=== PATIENT | female | born 1980 | race Caucasian/White ===

== ENCOUNTER 2017-01-20 05:35 | Day surgery (SDC) | payer MEDICAID ==
[~2017-01-20 05:35] MED LIST: CEFAZOLIN 2 GM/D5W RTU 2 GM/50 ML RTUPB IV PRN
[2017-01-20 06:11] LABS: HEMATOCRIT 41.4 % (36.0-47.0); HGB HCT DIFFERENCE 0.6; MEAN CORPUSCULAR HEMOGLOBIN 33.9 pg (27.0-33.4); MEAN CORPUSCULAR HGB CONC 33.8 g/dL (32.0-36.0); MEAN CORPUSCULAR VOLUME 100 fl (80-97); RED BLOOD COUNT 4.13 10^6/uL (3.72-5.28); RED CELL DISTRIBUTION WIDTH 13.8 % (11.5-14.0); WHITE BLOOD COUNT 4.4 10^3/uL (4.0-10.5)
[2017-01-20 06:24] LABS: ANION GAP 14 (5-19); BLOOD UREA NITROGEN 7 mg/dL (7-20); CALCIUM 9.6 mg/dL (8.4-10.2); CARBON DIOXIDE 20 mmol/L (22-30); CHLORIDE 101 mmol/L (98-107); CREATININE RESULT 0.75 mg/dL (0.52-1.25); GLUCOSE 89 mg/dL (75-110); POTASSIUM 4.2 mmol/L (3.6-5.0); SODIUM 135.4 mmol/L (137-145)
[2017-01-20 06:28] LABS: APPEARANCE,URINE CLEAR; BILIRUBIN,URINE NEGATIVE (NEGATIVE); GLUCOSE, URINE NEGATIVE (NEGATIVE); KETONES,URINE NEGATIVE (NEGATIVE); LEUKOCYTE ESTERASE,URINE NEGATIVE (NEGATIVE); NITRITE,URINE NEGATIVE (NEGATIVE); PROTEIN,URINE NEGATIVE (NEGATIVE); URINE SPECIFIC GRAVITY 1.004; UROBILINOGEN,URINE NEGATIVE mg/dL (<2.0)
[2017-01-20] MEDS ORDERED: PROPOFOL INJ 200 MG/20 ML VIAL IV ONE ×2 (06:36→08:21)
[2017-01-20] MEDS ORDERED: FENTANYL CITRATE INJ/PF 250 MCG/5 ML AMPULE ONE (06:36)
[2017-01-20] MEDS ORDERED: MIDAZOLAM 2 MG/2 ML INJ ONE (06:36)
[2017-01-20] MEDS ORDERED: BUPIVACAINE HCL 0.5 % INJ/PF 30 ML SDV ONE (07:45)
[2017-01-20] MEDS ORDERED: LIDOCAINE 1% INJ-PF (10 MG/ML) 30 ML SDV ONE (07:59)
[2017-01-20] MEDS ORDERED: OXYCODONE-ACETAMINOPHEN 5-325 MG TABLET PO PRN ×3 (08:40→09:40)
[2017-01-20] MEDS ORDERED: MEPERIDINE HCL/PF INJ 25 MG/1 ML DISP.SYRIN IV PRN (08:40)
[2017-01-20] MEDS ORDERED: MORPHINE SULFATE 10 MG/ML INJ IV PRN ×2 (08:40→09:40)
[2017-01-20] MEDS ORDERED: FENTANYL CITRATE INJ/PF 100 MCG/2 ML AMPUL IV PRN ×3 (08:40)
[2017-01-20] MEDS ORDERED: PROMETHAZINE HCL INJ 25 MG/1 ML VIAL IV PRN ×2 (08:40)
[2017-01-20] MEDS ORDERED: DIPHENHYDRAMINE HCL 50 MG/ML VIAL IV PRN (08:40)
[2017-01-20] MEDS ORDERED: ONDANSETRON HCL INJ/PF 4 MG/2 ML SDV IV PRN ×2 (08:40→09:40)
[2017-01-20] MEDS ORDERED: DEXMEDETOMIDINE INJ 80 MCG/20 ML VIAL IV ONE (09:38)
--- NOTE | 2017-01-20 09:43 | PDOC DISCHARGE SUMMARY ---
Discharge Summary (SDC) - Discharge Final Diagnosis: Flexor Adhesions Left Small Finger Date of Surgery: 01/20/17 Discharge Date: 01/20/17 Condition: Good Treatment or Instructions: Schedule Follow Up w/ Dr. Rojas Samson @ [facility] for Surgery to be seen in 10-14 days or as scheduled [place]: [place]: [place]: May remove dressing on postop day #3, keep incision covered and dry. Ice and elevate May begin aggressive finger range of motion attempting to make full fist. Stool softener of choice when on pain medication. Prescriptions: Oxycodone HCl/Acetaminophen [Percocet 5-325 mg Tablet] 1 - 2 tab PO ASDIR PRN # 45 tablet PRN Reason: Discharge Diet: As Tolerated Respiratory Treatments at Home: Deep Breathing/Coughing Discharge Activity: No Lifting Over 10 Pounds, No Lifting/Push/Pulling Activities Provided by Home Health Agency: Occupational Therapy - Begin w/in 48hr s/p surgery Report the Following to Your Physician Immediately: Fever over 101 Degrees, Unusual Bleeding, Redness, Swelling, Warmth, Numbness, Tingling Sensation
--- NOTE | 2017-01-20 09:53 | Operative Report ---
Operative Report DATE OF SURGERY: 01/20/17 PREOPERATIVE DIAGNOSIS: Flexor Adhesions Left Small Finger S/P Zone II Repair, PIP Flexor Contracture POSTOPERATIVE DIAGNOSIS: Same OPERATION: Flexor Tenolysis Left Small Finger. PIP Capsulotomy SURGEON: JAKE MCCORMACK ANESTHESIA: LMAC COMPLICATIONS: None ESTIMATED BLOOD LOSS: Minimal PROCEDURE: Indication for above procedure: 36-year-old female who sustained a zone II flexor tendon laceration in September. Unfortunately patient did not follow up with therapy adequately enough and fail to do home exercise program and subsequently developed a flexion contracture of her PIP joint and adhesions. At that point we discussed treatment options including observation versus operative intervention. Patient understood the risks of the surgical procedure including flexor tendon rupture, neurovascular injury, infection, fail to see significant improvement patient verbalized understanding consented for the procedure. Procedure In Detail: Patient was seen and evaluated in the preoperative holding area. The upper extremity was initialized and marked. Patient received 2g of Ancef IV for bacterial prophylaxis. Patient was taken back to the operative room where transferred to the operative table and placed under general anesthesia. Once they were adequately anesthetized a nonsterile tourniquet was placed on the upper extremity. A surgical team debriefing was performed ensuring all instrumentation was available, the surgical procedure was discussed with possible concerns reviewed. A digital block was performed utilizing 50:50 mixture of 0.5% Marcaine without epinephrine and lidocaine 1%. The upper extremity was prepped with chlorhexidine and alcohol and draped in a sterile fashion. A timeout was done identifying correct patient, procedure and extremity everyone in attendance agree with this and verbalized no concerns. The extremity was exsanguinated the tourniquet was inflated to 250 mmHg. Patient's previous Carroll skin incision was utilized and extended proximally to the level of the A1 red. Blunt dissection was done proximally until normal appearing flexor tendon was identified. The A1 red was released in its entirety. The radial and ulnar neurovascular bundles were then identified and bluntly dissected out distally. There was significant adhesion and scarring of the soft tissues to the skin. The scar was carefully elevated until the normal appearing flexor tendon was identified. There was significant scarring of the flexor tendon to the adjacent neurovascular bundles and A2 red which remained intact. Once again the neurovascular bundles were identified as dissection moved in a distal direction and protected during release. Using flexor tenolysis knives I released the adhesions from the flexor tendon from the underlying middle phalanx and volar plate. I also carefully elevated the flexor tendon from the adhesions to the A2 red. I then continued distally. Once again the neurovascular bundles were identified and scarred to the adjacent tissue radially and ulnarly and retracted from the surgical field. I then encountered the flexor tendon repair site. The repair site remained in continuity and was not disrupted. Once again I elevated adhesions to the underlying middle phalanx and the distal phalanx. Releasing adhesions along the radial and ulnar aspect of the flexor tendon. The flexor tendon was carefully retracted in a ulnar direction and the check rein ligaments radially and ulnarly released along with elevation of the volar plate of the PIP joint. Gentle manipulation was then performed obtaining full extension of the PIP joint. Similarly at the DIP joint the volar plate was elevated and passive extension was corrected to approximately 10. Because this was the region of the repair site I did not do significant release to avoid iatrogenic flexor tendon disruption. From the proximal aspect of the wound with a right angle retractor I was able to fully flex the tendon. The wound was then irrigated with normal saline. The tourniquet was deflated any peripheral vasculature was coagulated with bipolar cautery after 2 minutes of compression. During this time patient was awoken from anesthesia and was able to make a full composite fist actively she was able to fully extend the MCP joint with a remaining 18 flexion contracture the PIP joint and 10 flexion contracture of the DIP joint. The wound was then determined to be dried to avoid postoperative scarring and swelling. Skin incision was closed with interrupted 4-0 nylon suture. An additional 10 mL of 0.5% Marcaine was injected for postoperative pain control. Wound was dressed with Xeroform 4 x 4' s and a soft dressing. Sponge counts, instrument counts, needle counts counts were correct. Patient was then awoken from anesthesia. Transferred from the operating room table to the operating room stretcher. There was no intraoperative complications patient tolerated procedure well stable to PACU. Postoperative plan: Patient will begin occupational therapy within 48 hours focusing on aggressive passive and active flexion and active extension without aggressive passive extension.
[2017-01-20 11:27] VITALS: BP 119/67
[2017-01-20] MEDS ORDERED: LIDOCAINE 2% INJ-PF (20 MG/ML) 10 ML AMPUL ONE (14:26)
[2017-01-20] MEDS ORDERED: ONDANSETRON HCL INJ/PF 4 MG/2 ML SDV ONE (14:26)
== END 2017-01-20 11:29 | disposition home or self-care (01) ==
LOC: OROUT 05:35
PROVIDERS: ATTEND Orthopaedic Surgery
PROC: 0LN80ZZ Release Left Hand Tendon, Open Approach (ICD-10-PCS; principal; 2017-01-20 08:00)
DX: M79.642 Pain in left hand (principal); M24.542 Contracture, left hand; I10 Essential (primary) hypertension; F17.210 Nicotine dependence, cigarettes, uncomplicated; E66.9 Obesity, unspecified; G47.00 Insomnia, unspecified; Z68.34 Body mass index [BMI] 34.0-34.9, adult; Z79.899 Other long term (current) drug therapy
CPT/HCPCS: 36415; 85027; 81025; 80048; 81001; 26440; J2250; J3010; J3490 ×3; J2405; J2704; J0690; 1810